=== PATIENT | female | born 1975 | race Caucasian/White ===

== ENCOUNTER 2023-08-19 22:41 | Emergency (ER) | payer MEDICAID ==
[~2023-08-19] VITALS: Ht 162.6 cm; Wt 100.3 kg
[2023-08-19 23:08] VITALS: BP 168/91; PULSE 88; RESP 18; TEMP 98.2; O2SAT 97
== END 2023-08-20 04:04 | disposition left against medical advice (07) ==
LOC: ER 22:42
DX: R07.0 Pain in throat (principal); Z53.21 Procedure and treatment not carried out due to patient leaving prior to being seen by health care provider
CPT/HCPCS: 36415; 87811; 99281